=== PATIENT | female | born 1985 | race American Indian/Alaskan Native ===

== ENCOUNTER 2018-09-28 15:13 | Emergency (ER) | payer OTHER ==
--- NOTE | 2018-09-28 15:36 | Event Note ---
ED Screening Note ED Screening Note: pt with sore throat that began a week ago states it hurts to swallow has itching, watery eyes, itching ears no fever no sick contacts has been taking over the counter medication PMHx gastric ulcer/GERD, states she is also having epigastric burning no allergies to meds LNMP september 06 stating also having green discharge, vaginal itching, vaginal burning pt is sexually active non smoker non drinker no drug use This initial assessment/diagnostic orders/clinical plan/treatment(s) is/are subject to change based on patients health status, clinical progression and re- assessment by fellow clinical providers in the ED. Further treatment and workup at subsequent clinical providers discretion. Patient/guardian urged not to elope from the ED as their condition may be serious if not clinically assessed and managed. Initial orders include: rapid strep, UA, urine preg
[2018-09-28 16:37] VITALS: BP 142/82
[2018-09-28 16:56] LABS: Bacteria,Urine 1+ /HPF (Negative); Bilirubin,Urine NEG (Negative); Blood,Urine SM (Negative); Color,Urine Straw (Yellow); HCG Qualitative,Urine Negative (Negative); Mucus,Urine FEW /HPF; Protein,Urine <15 mg/dL mg/dL (Negative); Urobilinogen,Urine < 2.0 mg/dL (<2.0)
--- NOTE | 2018-09-28 18:32 | Emergency Department Report ---
ED ENT HPI - General Chief complaint: Sore Throat Stated complaint: SORE THROAT/FACE IRRITATION Time Seen by Provider: 09/28/18 15:30 Source: patient Mode of arrival: Ambulatory Limitations: No Limitations - History of Present Illness MD complaint: tooth pain, sore throat -: Gradual Location: throat Severity: mild Quality: dull Consistency: constant Worsens with: none Associated Symptoms: pain with swallowing, sore throat. denies: gum swelling, tinnitus, rhinorrhea - Related Data Previous Rx's Medication Instructions Recorded Last Taken Type HYDROcodone/APAP 5-325 [[place] 1 each PO Q6HR PRN #8 tablet 03/22/15 Unknown Rx 5/325] Promethazine [Phenergan TAB] 25 mg PO Q6HR PRN #12 tab 03/22/15 Unknown Rx Amoxicillin [Amoxicillin TAB] 875 mg PO BID #20 tablet 09/28/18 Unknown Rx Chlorhexidine Mouthwash [Peridex] 15 ml MM BID #473 bottle 09/28/18 Unknown Rx Lidocaine Viscous 2% 5 ml MM Q3H PRN #120 udc 09/28/18 Unknown Rx Naphazoline HCl/Pheniramine 1 drop OU BID #1 bottle 09/28/18 Unknown Rx [Naphcon-A Eye Drops] Allergies Allergy/AdvReac Type Severity Reaction Status Date / Time No Known Allergies Allergy Verified 09/28/18 16:35 ED Dental HPI - General Chief complaint: Sore Throat Stated complaint: SORE THROAT/FACE IRRITATION Time Seen by Provider: 09/28/18 15:30 Source: patient Mode of arrival: Ambulatory Limitations: No Limitations - Related Data Previous Rx's Medication Instructions Recorded Last Taken Type HYDROcodone/APAP 5-325 [[place] 1 each PO Q6HR PRN #8 tablet 03/22/15 Unknown Rx 5/325] Promethazine [Phenergan TAB] 25 mg PO Q6HR PRN #12 tab 03/22/15 Unknown Rx Amoxicillin [Amoxicillin TAB] 875 mg PO BID #20 tablet 09/28/18 Unknown Rx Chlorhexidine Mouthwash [Peridex] 15 ml MM BID #473 bottle 09/28/18 Unknown Rx Lidocaine Viscous 2% 5 ml MM Q3H PRN #120 udc 09/28/18 Unknown Rx Naphazoline HCl/Pheniramine 1 drop OU BID #1 bottle 09/28/18 Unknown Rx [Naphcon-A Eye Drops] Allergies Allergy/AdvReac Type Severity Reaction Status Date / Time No Known Allergies Allergy Verified 09/28/18 16:35 ED Review of Systems ROS: Stated complaint: SORE THROAT/FACE IRRITATION Other details as noted in HPI Constitutional: denies: chills, fever Eyes: denies: eye pain, eye discharge, vision change ENT: denies: ear pain, throat pain Respiratory: denies: cough, shortness of breath, wheezing Cardiovascular: denies: chest pain, palpitations Endocrine: no symptoms reported Gastrointestinal: denies: abdominal pain, nausea, diarrhea Genitourinary: denies: urgency, dysuria, discharge Musculoskeletal: denies: back pain, joint swelling, arthralgia Skin: denies: rash, lesions Neurological: denies: headache, weakness, paresthesias Psychiatric: denies: anxiety, depression Hematological/Lymphatic: denies: easy bleeding, easy bruising ED Past Medical Hx - Past Medical History Additional medical history: Peptic ulcer - Social History Smoking Status: Never Smoker - Medications Home Medications: Home Medications Medication Instructions Recorded Confirmed Last Taken Type HYDROcodone/APAP 5-325 [[place] 1 each PO Q6HR PRN #8 tablet 03/22/15 Unknown Rx 5/325] Promethazine [Phenergan TAB] 25 mg PO Q6HR PRN #12 tab 03/22/15 Unknown Rx Amoxicillin [Amoxicillin TAB] 875 mg PO BID #20 tablet 09/28/18 Unknown Rx Chlorhexidine Mouthwash [Peridex] 15 ml MM BID #473 bottle 09/28/18 Unknown Rx Lidocaine Viscous 2% 5 ml MM Q3H PRN #120 udc 09/28/18 Unknown Rx Naphazoline HCl/Pheniramine 1 drop OU BID #1 bottle 09/28/18 Unknown Rx [Naphcon-A Eye Drops] ED Physical Exam - General Limitations: No Limitations General appearance: alert, in no apparent distress - Head Head exam: Present: atraumatic, normocephalic - Eye Eye exam: Present: normal appearance, PERRL, EOMI Pupils: Present: normal accommodation - ENT ENT exam: Present: mucous membranes moist, other (pharynx has erythema. There is bilateral nasal congestion. Clear nasal ears have small effusions. No lymphadenopathy is appreciated. Airway is patent. Tongue and uvula are midline) - Neck Neck exam: Present: normal inspection - Respiratory Respiratory exam: Present: normal lung sounds bilaterally. Absent: respiratory distress - Cardiovascular Cardiovascular Exam: Present: regular rate, normal rhythm. Absent: systolic murmur, diastolic murmur, rubs, gallop - GI/Abdominal GI/Abdominal exam: Present: soft, normal bowel sounds - Extremities Exam Extremities exam: Present: normal inspection - Back Exam Back exam: Present: normal inspection - Neurological Exam Neurological exam: Present: alert, oriented X3 - Psychiatric Psychiatric exam: Present: normal affect, normal mood - Skin Skin exam: Present: warm, dry, intact, normal color. Absent: rash ED Course Vital Signs 09/28/18 16:36 Temperature 98.1 F Pulse Rate 83 Respiratory 18 Rate Blood Pressure 142/82 O2 Sat by Pulse 100 Oximetry ED Medical Decision Making - Medical Decision Making 33-year-old female [facility] complaining of sore throat, ear pressure, and itchy eyes. Pharynx clear. Airway patent. Symptoms have been going on for the local week. Afebrile. No splenic tenderness. No rashes associated. The patient did not wish to discuss any vaginal issues. Therefore, they were disregarded. Kervin. She is having vaginal issues follow up with [facility] or primary care provider for further treatment options. If they are actually present. Critical care attestation.: If time is entered above; I have spent that time in minutes in the direct care of this critically ill patient, excluding procedure time. ED Disposition Clinical Impression: Pharyngitis Disposition: DC-01 TO HOME OR SELFCARE Is pt being admited?: No Does the pt Need Aspirin: No Condition: Stable Instructions: Pharyngitis (ED) Prescriptions: Amoxicillin [Amoxicillin TAB] 875 mg PO BID #20 tablet Lidocaine Viscous 2% 5 ml MM Q3H PRN #120 udc PRN Reason: Pain, Moderate (4-6) Naphazoline HCl/Pheniramine [Naphcon-A Eye Drops] 1 drop OU BID #1 bottle Chlorhexidine Mouthwash [Peridex] 15 ml MM BID #473 bottle Referrals: [facility] [Provider Group] - 3-5 Days
== END 2018-09-28 18:41 | disposition home or self-care (01) ==
LOC: ED 15:13
DX: J02.9 Acute pharyngitis, unspecified (principal)
CPT/HCPCS: 81001; 81025; 87116; 87430

== ENCOUNTER 2019-03-29 20:34 | Emergency (ER) | payer SELFPAY ==
--- NOTE | 2019-03-29 20:54 | Event Note ---
ED Screening Note Date of service: 03/29/19 Time: 20:53 ED Screening Note: 33 yo f presents to ed cc of dizziness x 2days also cc of nausea This initial assessment/diagnostic orders/clinical plan/treatment(s) is/are subject to change based on patients health status, clinical progression and re- assessment by fellow clinical providers in the ED. Further treatment and workup at subsequent clinical providers discretion. Patient/guardian urged not to elope from the ED as their condition may be serious if not clinically assessed and managed. Initial orders include: ua,upt
[2019-03-29 22:19] LABS: Bacteria,Urine 2+ /HPF (Negative); Mucus,Urine FEW /HPF
[2019-03-29 22:20] LABS: Bilirubin,Urine NEG (Negative); Blood,Urine NEG (Negative); Color,Urine Straw (Yellow); Protein,Urine <15 mg/dL mg/dL (Negative); Urobilinogen,Urine < 2.0 mg/dL (<2.0)
[2019-03-29 22:25] LABS: HCG Qualitative,Urine Positive (Negative)
--- NOTE | 2019-03-29 23:11 | Emergency Department Report ---
ED General Adult HPI - General Chief complaint: Dizziness Stated complaint: DIZZINESS/BODY PAIN Time Seen by Provider: 03/29/19 23:06 Source: patient Mode of arrival: Ambulatory Limitations: No Limitations - History of Present Illness Initial comments: 33-year-old female presents to the emergency room for dizziness and generalized body pain 2 days. Patient is concerned that she may be . Patient's last menstrual period was 03/12/2019. She admits to head feeling heavy and dizziness nasal congestion itchy watery eyes. Patient denies any fever. She denies any cough. Patient reports she's taken Aleve 3 days ago. Onset/Timin -: days(s) Radiation: non-radiation Quality: aching (body aches) Consistency: constant Improves with: none Worsens with: none Associated Symptoms: malaise, weakness. denies: cough, fever/chills, nausea/vomiting, shortness of breath Treatments Prior to Arrival: none - Related Data Previous Rx's Medication Instructions Recorded Last Taken Type HYDROcodone/APAP 5-325 [[place] 1 each PO Q6HR PRN #8 tablet 03/22/15 Unknown Rx 5/325] Promethazine [Phenergan TAB] 25 mg PO Q6HR PRN #12 tab 03/22/15 Unknown Rx Amoxicillin [Amoxicillin TAB] 875 mg PO BID #20 tablet 09/28/18 Unknown Rx Chlorhexidine Mouthwash [Peridex] 15 ml MM BID #473 bottle 09/28/18 Unknown Rx Lidocaine Viscous 2% 5 ml MM Q3H PRN #120 udc 09/28/18 Unknown Rx Naphazoline HCl/Pheniramine 1 drop OU BID #1 bottle 09/28/18 Unknown Rx [Naphcon-A Eye Drops] Pnv,Calcium 72/Iron/Folic Acid 1 each PO QDAY #45 tablet 03/29/19 Unknown Rx [ Plus Tablet] Allergies Allergy/AdvReac Type Severity Reaction Status Date / Time No Known Allergies Allergy Verified 09/28/18 16:35 ED Review of Systems ROS: Stated complaint: DIZZINESS/BODY PAIN Other details as noted in HPI Comment: All other systems reviewed and negative ED Past Medical Hx - Past Medical History Additional medical history: Peptic ulcer - Social History Smoking Status: Never Smoker - Medications Home Medications: Home Medications Medication Instructions Recorded Confirmed Last Taken Type HYDROcodone/APAP 5-325 [[place] 1 each PO Q6HR PRN #8 tablet 03/22/15 Unknown Rx 5/325] Promethazine [Phenergan TAB] 25 mg PO Q6HR PRN #12 tab 03/22/15 Unknown Rx Amoxicillin [Amoxicillin TAB] 875 mg PO BID #20 tablet 09/28/18 Unknown Rx Chlorhexidine Mouthwash [Peridex] 15 ml MM BID #473 bottle 09/28/18 Unknown Rx Lidocaine Viscous 2% 5 ml MM Q3H PRN #120 udc 09/28/18 Unknown Rx Naphazoline HCl/Pheniramine 1 drop OU BID #1 bottle 09/28/18 Unknown Rx [Naphcon-A Eye Drops] Pnv,Calcium 72/Iron/Folic Acid 1 each PO QDAY #45 tablet 03/29/19 Unknown Rx [ Plus Tablet] ED Physical Exam - General Limitations: No Limitations General appearance: alert, in no apparent distress - Head Head exam: Present: atraumatic, normocephalic - Eye Eye exam: Present: normal appearance, PERRL, EOMI - ENT ENT exam: Present: normal exam, normal orophraynx, mucous membranes moist - Neck Neck exam: Present: normal inspection, full ROM - Respiratory Respiratory exam: Present: normal lung sounds bilaterally. Absent: respiratory distress - Cardiovascular Cardiovascular Exam: Present: regular rate, normal rhythm. Absent: systolic murmur, diastolic murmur, rubs, gallop - Back Exam Back exam: Present: full ROM - Expanded Neurological Exam Expanded Cranial nerves: EOM's Intact: Normal, Gag Reflex: Normal, Tongue Deviation: Normal Cerebellar function: Finger to Nose: Normal, Heel to Paula: Normal, Romberg: Normal Upper motor neuron: Don Neglect: Normal, Pronator Drift: Normal Sensory exam: Upper Extremity Light Touch: Normal, Upper Extremity Pin Prick: Normal, Upper Extremity Temperature: Normal, UE 2 Point Discrimination: Normal, Lower Extremity Light Touch: Normal, Lower Extremity Pin Prick: Normal, Lower Extremity Temperature: Normal, LE 2 Point Discrimination: Normal Motor strength exam: RUE: 4, LUE: 4, RLE: 4, LLE: 4 Best Eye Response ([place]): (4) open spontaneously Best Motor Response ([place]): (6) obeys commands Best Verbal Response ([place]): (5) oriented [place] Total: 15 - Psychiatric Psychiatric exam: Present: normal affect, normal mood - Skin Skin exam: Present: warm, dry, intact, normal color. Absent: rash ED Course Vital Signs 03/29/19 20:37 Temperature 98.0 F Pulse Rate 99 H Respiratory 18 Rate Blood Pressure 143/76 O2 Sat by Pulse 100 Oximetry ED Medical Decision Making - Medical Decision Making 33-year-old female presents to the emergency room for dizziness and generalized body pain 2 days. Patient is concerned that she may be . Patient's last menstrual period was 03/12/2019. She admits to head feeling heavy and dizziness nasal congestion itchy watery eyes. Patient denies any fever. She denies any cough. Patient reports she's taken Aleve 3 days ago. Positive tests Critical care attestation.: If time is entered above; I have spent that time in minutes in the direct care of this critically ill patient, excluding procedure time. ED Disposition Clinical Impression: Positive blood test, Dizziness, nonspecific Disposition: DC-01 TO HOME OR SELFCARE Is pt being admited?: No Does the pt Need Aspirin: No Condition: Stable Instructions: (ED) Additional Instructions: Increase her fluid intake. Do not take Aleve or ibuprofen only take Tylenol for pain. Follow-up with the [facility] provider. Take her vitamins as prescribed. Prescriptions: Pnv,Calcium 72/Iron/Folic Acid [ Plus Tablet] 1 each PO QDAY #45 tablet Referrals: [facility] [Primary Care Provider] - 3-5 Days [facility] [Provider Group] - 3-5 Days [facility] [Provider Group] - 3-5 Days [facility] [Provider Group] - 3-5 Days
[2019-03-29 23:40] VITALS: BP 132/77
== END 2019-03-29 23:25 | disposition home or self-care (01) ==
LOC: ED 20:34
DX: O26.891 Other specified pregnancy related conditions, first trimester (principal); R42 Dizziness and giddiness; Z3A.01 Less than 8 weeks gestation of pregnancy
CPT/HCPCS: 81001; 81025